=== PATIENT | female | born 1975 | race Caucasian/White ===

== ENCOUNTER 2018-09-12 13:10 | Inpatient (IN) | payer MEDICAID ==
[~2018-09-12] VITALS: Ht 165.1 cm; Wt 89.0 kg
--- NOTE | 2018-09-12 13:43 | HP ---
Date/Time of Note Date/Time of Note DATE: 09/12/18 TIME: 13:39 OB - History Hx of Present Chief Complaint: uncontrolled GDM Estimated Due Date: Sep 05, 2018 : 5 Para: 2 Spontaneous : 0 Therapeutic : 2 Care: Good Care Ultrasounds: Normal mid trimester US Obstetrical Complications: Gestational Diabetes Medical Complications: None Past Family/Social History * Past Medical, Surgical, Family and Obstetric Histories reviewed from chart. GBS Status: Negative OB Admission Exam Physical Exam HEENT: WNL Heart: Rhythm Normal Lungs: Clear, Equal Abdomen: WNL Extremities: Normal Reflexes: Normal Heart Rate: 120's Accelerations: Accelerations Present Decelerations: No Decelerations Varibility: Moderate OB Assessment/Plan Reason for admission: other Other Assessment: uncontrolled GDM Plan: Other Other plan: Admit Perinatology consult Diabetic teaching Monitor blood glucose SHERLEY CHAMBERS MD Sep 12, 2018 13:43
[2018-09-12 13:59] VITALS: Ht 165.1 cm; Wt 89.0 kg
[2018-09-12 14:01] VITALS: BP 120/76; PULSE 83; RESP 20
[2018-09-12] MEDS ORDERED: PREN-6 PO (14:03)
[2018-09-12] MEDS ORDERED: FOLI-49 PO (14:21)
[2018-09-12] MEDS ORDERED: FER325 PO (14:22)
[2018-09-12] MEDS ORDERED: GLUCOSE GEL 15 GRAM TUBE PO PRN ×2 (14:30)
[2018-09-12] MEDS ORDERED: GLUCOSE GEL 15 GRAM TUBE BUCCAL PRN (14:30)
[2018-09-12] MEDS ORDERED: ACETAMINOPHEN 325 MG TAB PO PRN (14:30)
[2018-09-12] MEDS ORDERED: DEXTROSE 50% 50 ML SYRINGE IV PRN ×2 (14:30)
[2018-09-12] MEDS ORDERED: GLUCAGON 1 MG INJ IM PRN (14:30)
[2018-09-12] MEDS: ACCU-CHEK XX SCH (20:05)
[2018-09-12] MEDS ORDERED: ACCU-CHEK XX SCH (20:05)
[2018-09-13] MEDS ORDERED: PRENATAL VITAMIN PO SCH (09:00)
[2018-09-13] MEDS ORDERED: FERROUS SULFATE (EC) 325 MG TAB PO SCH (09:00)
[2018-09-13] MEDS: PRENATAL VITAMIN PO SCH (09:40)
[2018-09-13] MEDS: FERROUS SULFATE (EC) 325 MG TAB PO SCH (09:40)
[2018-09-13] MEDS: DOCUSATE SODIUM 100 MG CAP PO SCH (09:40)
[2018-09-13] MEDS: ACCU-CHEK XX SCH ×3 (10:05→20:05)
--- NOTE | 2018-09-13 17:16 | QN ---
Documentation Comment No complaint Afebrile VSS Strip Reactive Await Perinatology consult SHERLEY CHAMBERS MD Sep 13, 2018 17:16
[2018-09-13] MEDS: metFORMIN 500 MG TAB PO SCH (20:47)
[2018-09-14] MEDS: DOCUSATE SODIUM 100 MG CAP PO SCH (08:30)
[2018-09-14] MEDS: PRENATAL VITAMIN PO SCH (08:30)
[2018-09-14] MEDS: FERROUS SULFATE (EC) 325 MG TAB PO SCH (08:30)
[2018-09-14] MEDS: metFORMIN 500 MG TAB PO SCH ×2 (08:30→20:38)
[2018-09-14] MEDS: ACCU-CHEK XX SCH ×3 (10:54→20:10)
--- NOTE | 2018-09-14 16:50 | QN ---
Documentation Comment No complaint Afebrile VSS Strip Reactive Blood glucose elevated Patient is started on Metformin by Perinatology. Continue care per Perinatology. SHERLEY CHAMBERS MD Sep 14, 2018 16:50
[2018-09-15] MEDS: metFORMIN 500 MG TAB PO SCH (08:15)
[2018-09-15] MEDS: PRENATAL VITAMIN PO SCH (08:15)
[2018-09-15] MEDS: DOCUSATE SODIUM 100 MG CAP PO SCH (08:15)
[2018-09-15] MEDS: FERROUS SULFATE (EC) 325 MG TAB PO SCH (08:15)
[2018-09-15] MEDS: ACCU-CHEK XX SCH ×2 (10:47→14:39)
--- NOTE | 2018-09-18 03:49 | PN ---
DATE: 09/15/2018 The patient was admitted over the weekend for diabetic control because she was noncompliant. 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 She was contacted and was placed on metformin with breakfast and bedtime. Currently , blood glucoses are under good control, so my recommendation is for the patient to be discharged wit h a followup with perinatology within 1 or 2 weeks. Dictated By: HOMERO ROSENBERG/MARIMAR Conf#: [id number] DID#: [id number]
== END 2018-09-15 18:55 | disposition home or self-care (01) | DRG 833 ==
LOC: PP1 13:10
PROVIDERS: ADMIT Obstetrics & Gynecology; ATTEND Obstetrics & Gynecology
DX: O24.419 Gestational diabetes mellitus in pregnancy, unspecified control (principal); O09.523 Supervision of elderly multigravida, third trimester; Z3A.36 36 weeks gestation of pregnancy; Z91.11 Patient's noncompliance with dietary regimen
CPT/HCPCS: 76818; 80053; 81003; 82962; 83036; 85025; 87086

== ENCOUNTER 2018-09-27 19:36 | Inpatient (IN) | payer MEDICAID ==
[~2018-09-27] VITALS: Ht 162.6 cm; Wt 82.7 kg
[~2018-09-27 19:36] MED LIST: FER325 PO; FOLI-49 PO; PREN-6 PO
[2018-09-27 19:45] VITALS: BP 138/88; PULSE 117; RESP 19
[2018-09-27] MEDS ORDERED: CITRACAL PO (19:56)
[2018-09-27] MEDS ORDERED: METF-849 PO (19:56)
[2018-09-27 20:02] VITALS: Ht 162.6 cm; Wt 82.7 kg
[2018-09-27] MEDS: LACTATED RINGER'S 1,000 ML IV SCH ×2 (20:17→21:31)
[2018-09-27] MEDS ORDERED: CARBOPROST 250 MCG INJ IM PRN (20:30)
[2018-09-27] MEDS ORDERED: MINERAL OIL LIGHT 10 ML VIAL TOP ONE (20:30)
[2018-09-27] MEDS ORDERED: OXYTOCIN 30 UNITS/LR 500 ML IV PRN ×2 (20:30→21:00)
[2018-09-27] MEDS ORDERED: LIDOCAINE 1% (MPF) 30 ML INJ INJ PRN (20:30)
[2018-09-27] MEDS ORDERED: OXYCODONE/ASPIRIN (4.88/325) TAB PO PRN (20:30)
[2018-09-27] MEDS ORDERED: IBUPROFEN 600 MG TAB PO PRN (20:30)
[2018-09-27] MEDS ORDERED: OXYTOCIN 30 UNITS/LR 500 ML IV SCH ×2 (20:30)
[2018-09-27] MEDS ORDERED: BUTORPHANOL 2 MG INJ IV PRN (20:30)
[2018-09-27] MEDS ORDERED: METHYLERGONOVINE 0.2 MG INJ IM PRN (20:30)
[2018-09-27] MEDS ORDERED: MISOPROSTOL 200 MCG TAB PR PRN (20:30)
[2018-09-27] MEDS ORDERED: metFORMIN 500 MG TAB PO ONE (21:00)
--- NOTE | 2018-09-27 21:04 | PREAC ---
Date/Time of Note Date/Time of Note DATE: 09/27/18 TIME: 21:03 Anesthesia Eval and Record Evaluation Time Pre-Procedure Interview DATE: 09/27/18 TIME: 21:03 Age 43 Sex female NPO: 8 hrs Preoperative diagnosis iup at 38 weeks Planned procedure labor epidural Past Medical History Past Medical History: Includes GI: Obesity Surgery & Anesthesia Issues No known issue Meds Anticoagulation: No Beta Frantz within 24 hr: No Reason Beta Frantz not given: Pt. not on B-Frantz Reported Medications Calcium Citrate* (Citracal*) 950 Mg Tab, 950 MG PO DAILY, TAB 09/27/18 Metformin* (Glucophage*) 500 Mg Tab, 500 MG PO WITH BREAKFAST DINNE, #30 TAB 09/27/18 Ferrous Sulfate* (Ferrous Sulfate*) 325 Mg Tabec, 325 MG PO DAILY, TAB 09/12/18 Folic Acid* (Folic Acid*) 1 Mg Tablet, 1 MG PO DAILY, TAB 09/12/18 Vits #93-Iron Fum-FA ( Formula) 1 Each Tablet, 1 TAB PO DAILY, TAB 09/12/18 Current Medications Lactated Ringer's 1,000 ml @ 125 mls/hr Q8H IV Last administered on 09/27/18at 20:17; Admin Dose 125 MLS/HR; Start 09/27/18 at 20:03 Butorphanol Tartrate (Stadol) 2 mg Q2H PRN IV .PAIN Last administered on 09/27/18at 20:32; Admin Dose 2 MG; Start 09/27/18 at 20:30 Lidocaine (Xylocaine 1% (Mpf)) 30 ml ONCE PRN INJ .EPISIOTOMY; Start 09/27/18 at 20:30 Oxytocin/Lactated Ringer's 500 ml @ 500 mls/hr ONCE POST IV ; Start 09/27/18 at 20:30 Oxytocin/Lactated Ringer's 500 ml @ 125 mls/hr POST IV ; Start 09/27/18 at 20:30 Ibuprofen (Motrin) 600 mg ONCE PRN PO .PAIN 1-5; Start 09/27/18 at 20:30 Oxycodone/Aspirin (Percodan) 2 tab ONCE PRN PO .PAIN 6-10; Start 09/27/18 at 20:30 Oxytocin/Lactated Ringer's 500 ml @ 0 mls/hr ONCE PRN IV .VAGINAL BLEEDING; Start 09/27/18 at 20:30 Methylergonovine Maleate (Methergine) 0.2 mg ONCE PRN IM .VAGINAL BLEEDING; Start 09/27/18 at 20:30 Carboprost Tromethamine (Hemabate) 250 mcg ONCE PRN IM .VAGINAL BLEEDING; Start 09/27/18 at 20:30 Misoprostol (Cytotec) 1,000 mcg ONCE PRN IL .VAGINAL BLEEDING; Start 09/27/18 at 20:30 Oxytocin/Lactated Ringer's 500 ml @ 0 mls/hr FOR AUGMENTATION PRN IV LABOR AUGMENTATION; Start 09/27/18 at 21:00 Meds reviewed: Yes Allergies Coded Allergies: No Known Allergies (Verified Allergy, Unknown, 09/27/18) Allergies Reviewed: Yes Labs/Studies Labs Reviewed: Reviewed by anesthesiologist Result Diagram: 09/27/182014 Laboratory Tests 09/27/18 20:15 test: Positive Pre-procedure Exam Last vitals Vital Signs Date Temp Pulse Resp B/P (MAP) Pulse Ox O2 O2 Flow FiO2 Time Delivery Rate 09/27/18 97.7 117 19 138/88 Room Air 19:45 (105) Airway: Adequate mouth opening, Adequate thyromental dist Mallampati: Mallampati I Teeth: Normal Lung: Normal Heart: Normal ASA Physical Status ASA physical status: 2 Emergency: None Planned Anesthetic Neuraxial: Epidural Planned Pain Management Parenteral pain med Pre-operative Attestations Prior to commencing anesthesia and surgery, the patient was re-evaluated, there was verification of: *The patient's identity *The results of appropriate recent lab work and preoperative vital signs *The above evaluation not changing prior to induction *Anesthetic plan, risk benefits, alternative and complications discussed with patient/family; questions answered; patient/family understands, accepts and wishes to proceed. KAREN LOREDO Sep 27, 2018 21:04
[2018-09-27] MEDS ORDERED: FENTAnyl 2MCG/ML-ROPIV 0.2% 100 ML ONE (21:06)
[2018-09-27] MEDS ORDERED: NALOXONE (0.4 MG/ML) INJ IV PRN (21:30)
[2018-09-27] MEDS ORDERED: ONDANSETRON 4 MG INJ IV PRN (21:30)
[2018-09-27] MEDS ORDERED: FENTAnyl 2MCG/ML-ROPIV 0.2% 100 ML BAG EPI SCH (21:30)
[2018-09-27] MEDS ORDERED: DIPHENHYDRAMINE 50 MG INJ IV PRN (21:30)
--- NOTE | 2018-09-27 21:47 | TRIAGE ---
OB Triage Datetime Report Generated by CPN: 09/27/2018 21:46 Datetime: 09/27/2018 20:35 Vaginal Exam Dilatation (cms): 3.0 Effacement (%): 80 Station: -2 Exam By: Tommy COATES Vaginal Bleeding: Normal Show Cervix, Consistency: Soft Cervix, Position: Midposition Presentation 'A': Cephalic Datetime: 09/27/2018 20:34 Monitor Mode: External Monitor Mode: External US Datetime: 09/27/2018 20:32 Pain Assessment Pain Scale: 10 Pain Presence: Intermittent Pain Type: Contraction Pain Location: Abdomen; Back Pain Relief Measures: Pain Medication Given; Comfort Measures Datetime: 09/27/2018 20:17 Comments: mONITOR OFF, PT TRANSFERRED TO [facility] VIA GURNEY ACCOMPANIED BY 2RN'S _ FAMILY Datetime: 09/27/2018 20:16 Labor Evaluation Frequency: 1-3 Monitor Mode: External Duration (sec)2399: 50-70 Quality: Moderate Resting Tone [place]: Relaxed Heart Rate FHR Baseline Rate: 140 Monitor Mode: External US Variability: Moderate 6-25 bpm Accelerations: 15X15 Decelerations: None Category: Category I Pain Assessment Pain Scale: 7 Pain Presence: Intermittent Pain Type: Contraction; Pressure Pain Location: Abdomen; Back Pain Relief Measures: Comfort Measures Datetime: 09/27/2018 20:10 Assessment Type: Admission Assessment Vaginal Bleeding: Normal Show Maternal Assessment Level of Consciousness: Fully Conscious DTR's/Clonus: DTRs 2+; No Clonus Headache: Denies Blurred Vision: No Respiratory Effort: Unlabored; Regular Rhythm; Equal Expansion Breath Sounds, Left: Clear and Equal Breath Sounds, Right: Clear and Equal Nausea/Vomiting: Denies RUQ Epigastric Pain: Denies Lower Extremities Edema: None Degree: None Upper Extremities Edema: None Degree: None Facial Edema: None Fall Risk Assessment History of Falling: (0) No Secondary Diagnosis: (0) No Ambulatory Aid: (0) Bedrest/Nurse Assist IV Therapy: (0) No Gait: (0) Normal/Bedrest/Immobile Mental Status: (0) Oriented to Own Ability Fall Score: 0 Fall Risk Score Definition: No Risk: No action required Datetime: 09/27/2018 20:09 Time of Arrival: 09/27/2018 20:00 EGA: 38.5 Arrived By: Wheelchair Arrived From: Other Hospital Datetime: 09/27/2018 19:58 Vaginal Exam Dilatation (cms): 3.0 Effacement (%): 70 Station: -2 Exam By: MICHELET CASTELLANO Membrane Status: Ruptured Membranes Rupture Method: Spontaneous Amniotic Fluid Color: Clear Amniotic Fluid Amount: Large Amniotic Fluid Odor: None Vaginal Bleeding: Normal Show Nitrazine: Positive Cervix, Consistency: Soft Cervix, Position: Midposition Presentation 'A': Cephalic Datetime: 09/27/2018 19:56 Pain Assessment Pain Scale: 7 Pain Presence: Intermittent Pain Type: Contraction Pain Location: Abdomen Pain Relief Measures: Comfort Measures Datetime: 09/27/2018 19:50 Time of Arrival: 09/27/2018 19:29 EGA: 38.5 Arrived By: Ambulatory Arrived From: Home Chief Complaint: SROM AROUND 1900 WITH BLOODY SHOW AND WITH UC'S Movement: Present Contractions: Regular Time Contractions Began: 09/27/2018 19:00 Rupture of Membranes: Ruptured Vaginal Bleeding: Normal Show Vaginal Discharge: Present Recent Sexual Intercouse: Denies Abdominal Trauma: Not Applicable Patient Complaints: Contractions; Other Time Provider Notified: 09/27/2018 20:02 Provider Notified: REICHE Initial Plan: EFM, VS, SVE Datetime: 09/27/2018 19:45 Stage of : OB Triage Assessment Type: Triage Maternal Assessment Level of Consciousness: Fully Conscious DTR's/Clonus: DTRs 2+; No Clonus Headache: Denies Blurred Vision: No Respiratory Effort: Unlabored; Regular Rhythm; Equal Expansion Breath Sounds, Left: Clear and Equal Breath Sounds, Right: Clear and Equal Nausea/Vomiting: Denies RUQ Epigastric Pain: Denies Lower Extremities Edema: None Degree: None Upper Extremities Edema: None Degree: None Facial Edema: None Temperature Route: Oral Fall Risk Assessment History of Falling: (0) No Secondary Diagnosis: (0) No Ambulatory Aid: (0) Bedrest/Nurse Assist IV Therapy: (0) No Gait: (0) Normal/Bedrest/Immobile Mental Status: (0) Oriented to Own Ability Fall Score: 0 Fall Risk Score Definition: No Risk: No action required Pain Assessment Pain Scale: 2 Pain Presence: Intermittent Pain Type: Contraction Pain Location: Abdomen Pain Relief Measures: Comfort Measures Datetime: 09/27/2018 19:44 Monitor Mode: External Monitor Mode: External US Comments: MONITORS APPLIED, FHT AUDIBLE AT 135BPM Datetime: 09/27/2018 19:38 Stage of : OB Triage Comments: MONITOR ON, PT IN LR4 Datetime: 09/15/2018 18:17 Stage of : Antepartum Maternal Assessment Level of Consciousness: Fully Conscious Headache: Denies Blurred Vision: No Respiratory Effort: Unlabored Nausea/Vomiting: Denies RUQ Epigastric Pain: Denies Pain Presence: None/Denies Datetime: 09/15/2018 18:02 Stage of : Antepartum Maternal Assessment Level of Consciousness: Fully Conscious Headache: Denies Nausea/Vomiting: Denies Pain Presence: None/Denies Datetime: 09/15/2018 17:38 Stage of : Antepartum Maternal Assessment Level of Consciousness: Fully Conscious Headache: Denies Nausea/Vomiting: Denies Pain Presence: None/Denies Datetime: 09/15/2018 16:04 Stage of : Antepartum Maternal Assessment Level of Consciousness: Fully Conscious Headache: Denies Nausea/Vomiting: Denies Pain Presence: None/Denies Datetime: 09/15/2018 15:45 Stage of : Antepartum Maternal Assessment Level of Consciousness: Fully Conscious Headache: Denies Nausea/Vomiting: Denies RUQ Epigastric Pain: Denies Resting Tone [place]: Relaxed Comments: pt. acknowledges movements Pain Assessment Pain Scale: 0 Pain Presence: None/Denies Vaginal Bleeding: None Datetime: 09/15/2018 15:13 Stage of : Antepartum Maternal Assessment Level of Consciousness: Fully Conscious Headache: Denies Nausea/Vomiting: Denies Pain Presence: None/Denies Datetime: 09/15/2018 14:45 Maternal Assessment Level of Consciousness: Fully Conscious Headache: Denies Blurred Vision: No Respiratory Effort: Unlabored Nausea/Vomiting: Denies RUQ Epigastric Pain: Denies Bedside Blood Glucose: 96 Pain Presence: None/Denies Datetime: 09/15/2018 13:14 Stage of : Antepartum Maternal Assessment Level of Consciousness: Fully Conscious Headache: Denies Blurred Vision: No Respiratory Effort: Unlabored Nausea/Vomiting: Denies Pain Presence: None/Denies Datetime: 09/15/2018 13:12 Stage of : Antepartum Maternal Assessment Level of Consciousness: Fully Conscious Headache: Denies Nausea/Vomiting: Denies RUQ Epigastric Pain: Denies Resting Tone [place]: Relaxed Pain Presence: None/Denies Datetime: 09/15/2018 11:26 Maternal Assessment Level of Consciousness: Fully Conscious Headache: Denies Blurred Vision: No Respiratory Effort: Unlabored Nausea/Vomiting: Denies RUQ Epigastric Pain: Denies Datetime: 09/15/2018 10:45 Labor Evaluation Frequency: 0 Monitor Mode: External Resting Tone [place]: Relaxed Heart Rate FHR Baseline Rate: 135 Monitor Mode: External US Variability: Moderate 6-25 bpm Accelerations: 15X15 Decelerations: None Datetime: 09/15/2018 10:28 Maternal Assessment Level of Consciousness: Fully Conscious Headache: Denies Blurred Vision: No Respiratory Effort: Unlabored Nausea/Vomiting: Denies RUQ Epigastric Pain: Denies Bedside Blood Glucose: 113 Monitor Mode: External Resting Tone [place]: Relaxed Pain Presence: None/Denies Datetime: 09/15/2018 09:30 Stage of : Antepartum Maternal Assessment Level of Consciousness: Fully Conscious Headache: Denies Nausea/Vomiting: Denies RUQ Epigastric Pain: Denies Resting Tone [place]: Relaxed Pain Assessment Pain Scale: 0 Pain Presence: None/Denies Vaginal Bleeding: None Datetime: 09/15/2018 08:30 Stage of : Antepartum Maternal Assessment Level of Consciousness: Fully Conscious Headache: Denies Breath Sounds, Left: Clear and Equal Breath Sounds, Right: Clear and Equal Nausea/Vomiting: Denies RUQ Epigastric Pain: Denies Resting Tone [place]: Relaxed Pain Assessment Pain Scale: 0 Pain Presence: None/Denies Vaginal Bleeding: None Datetime: 09/15/2018 07:24 Stage of : Antepartum Maternal Assessment Level of Consciousness: Fully Conscious Headache: Denies Blurred Vision: No Respiratory Effort: Unlabored Breath Sounds, Left: Clear and Equal Breath Sounds, Right: Clear and Equal Nausea/Vomiting: Denies RUQ Epigastric Pain: Denies Temperature Route: Oral Bedside Blood Glucose: 97 Resting Tone [place]: Relaxed Contraction Comments: pt. denies any uc's or cramping Comments: pt. acknowledges movements ega 37.0 orders for nst q shift. pt. rting after breakfa st at this time Pain Assessment Pain Scale: 0 Pain Presence: None/Denies Membrane Status: Intact Vaginal Bleeding: None Datetime: 09/15/2018 07:23 Stage of : Antepartum Datetime: 09/15/2018 06:15 Stage of : Antepartum Datetime: 09/15/2018 05:24 Stage of : Antepartum Temperature Route: Oral Contraction Comments: PT DENIES CRAMPING. Comments: PT STATES + FM Pain Presence: None/Denies Pain Type: N/A Membrane Status: Intact Vaginal Bleeding: None Datetime: 09/15/2018 03:10 Stage of : Antepartum Pain Presence: None/Denies Pain Type: N/A Pain Assessment Comments: PT SLEEPING WITH EVEN UNLABORED BREATHING Datetime: 09/15/2018 01:30 Stage of : Antepartum Pain Presence: None/Denies Pain Type: N/A Pain Assessment Comments: PT SLEEPING WITH EVEN UNLABORED BREATHING. Datetime: 09/14/2018 23:53 Stage of : Antepartum Temperature Route: Oral Contraction Comments: PT DENIES CRAMPING Comments: PT STATES + FM Datetime: 09/14/2018 21:59 Stage of : Antepartum Labor Evaluation Frequency: NONE Monitor Mode: External Resting Tone [place]: Relaxed Contraction Comments: TOCO REMOVED. NST COMPLETED. Heart Rate FHR Baseline Rate: 130 Monitor Mode: External US Variability: Moderate 6-25 bpm Accelerations: 15X15 Decelerations: None Category: Category I Comments: U/S REMOVED. NST COMPLETED. Pain Presence: None/Denies Pain Type: N/A Datetime: 09/14/2018 21:17 Labor Evaluation Frequency: NONE Monitor Mode: External Resting Tone [place]: Relaxed Heart Rate FHR Baseline Rate: 140 Monitor Mode: External US Variability: Moderate 6-25 bpm Accelerations: 15X15 Decelerations: None Category: Category I Pain Presence: None/Denies Pain Type: N/A Datetime: 09/14/2018 20:38 Stage of : Antepartum Datetime: 09/14/2018 20:13 Stage of : OB Triage Assessment Type: Ongoing Assessment Maternal Assessment Level of Consciousness: Fully Conscious DTR's/Clonus: DTRs 2+; No Clonus Headache: Denies Blurred Vision: No Respiratory Effort: Unlabored; Regular Rhythm; Equal Expansion Breath Sounds, Left: Clear and Equal Breath Sounds, Right: Clear and Equal Nausea/Vomiting: Denies RUQ Epigastric Pain: Denies Lower Extremities Edema: None Degree: None Upper Extremities Edema: None Degree: None Facial Edema: None Temperature Route: Oral Fall Risk Assessment History of Falling: (0) No Secondary Diagnosis: (0) No Ambulatory Aid: (0) Bedrest/Nurse Assist IV Therapy: (0) No Gait: (0) Normal/Bedrest/Immobile Mental Status: (0) Oriented to Own Ability Fall Score: 0 Fall Risk Score Definition: No Risk: No action required Monitor Mode: External Contraction Comments: PT DENIES CRAMPING Monitor Mode: External US Comments: APPLIED FOR NST Pain Presence: None/Denies Pain Type: N/A Membrane Status: Intact Vaginal Bleeding: None Datetime: 09/14/2018 20:10 Stage of : Antepartum Bedside Blood Glucose: 108 Datetime: 09/14/2018 17:55 Stage of : Antepartum Datetime: 09/14/2018 16:12 Stage of : Antepartum Temperature Route: Oral Datetime: 09/14/2018 15:20 Stage of : Antepartum Datetime: 09/14/2018 15:12 Stage of : Antepartum Datetime: 09/14/2018 15:10 Stage of : Antepartum Datetime: 09/14/2018 14:40 Bedside Blood Glucose: 100 (Annotations: 2 post prandial lunch) Datetime: 09/14/2018 12:28 Stage of : Antepartum Temperature Route: Oral Pain Assessment Pain Scale: 0 Pain Presence: None/Denies Pain Type: N/A Datetime: 09/14/2018 10:59 Stage of : Antepartum Bedside Blood Glucose: 94 Pain Assessment Pain Scale: 0 Pain Presence: None/Denies Pain Type: N/A Datetime: 09/14/2018 10:54 Stage of : Antepartum Bedside Blood Glucose: 93 (Annotations: 2 hour post breaskfast.) Datetime: 09/14/2018 07:59 Stage of : Antepartum Labor Evaluation Frequency: X3 Monitor Mode: External Duration (sec)2399: 50 Quality: Mild Pattern: Normal: <= 5 Contractions in 10 Minutes Resting Tone [place]: Relaxed Heart Rate FHR Baseline Rate: 145 Monitor Mode: External US FHR Baseline Changes: No Baseline Change Variability: Moderate 6-25 bpm Accelerations: 15X15 Decelerations: None Comments: NST completed Pain Assessment Pain Scale: 0 Pain Presence: None/Denies Pain Type: N/A Datetime: 09/14/2018 07:52 Stage of : OB Triage Bedside Blood Glucose: 98 (Annotations: FBS) Datetime: 09/14/2018 07:27 Monitor Mode: External Monitor Mode: External US Comments: NST started Datetime: 09/14/2018 07:22 Stage of : Antepartum Assessment Type: Ongoing Assessment Maternal Assessment Level of Consciousness: Fully Conscious DTR's/Clonus: DTRs 2+; No Clonus Headache: Denies Blurred Vision: No Respiratory Effort: Unlabored; Regular Rhythm; Equal Expansion Breath Sounds, Left: Clear and Equal Breath Sounds, Right: Clear and Equal Nausea/Vomiting: Denies RUQ Epigastric Pain: Denies Lower Extremities Edema: None Degree: None Upper Extremities Edema: None Degree: None Facial Edema: None Temperature Route: Oral Fall Risk Assessment History of Falling: (0) No Secondary Diagnosis: (0) No Ambulatory Aid: (0) Bedrest/Nurse Assist IV Therapy: (0) No Gait: (0) Normal/Bedrest/Immobile Mental Status: (0) Oriented to Own Ability Fall Score: 0 Fall Risk Score Definition: No Risk: No action required Pain Assessment Pain Scale: 0 Pain Presence: None/Denies Pain Type: N/A Datetime: 09/14/2018 07:20 Stage of : Antepartum Datetime: 09/14/2018 05:23 Stage of : Antepartum Temperature Route: Oral Pain Assessment Pain Scale: 0 Pain Presence: None/Denies Pain Goal: 0 Datetime: 09/13/2018 21:00 Pain Assessment Pain Scale: 0 Pain Presence: None/Denies Pain Type: N/A Pain Goal: 0 Datetime: 09/13/2018 20:25 Comments: EFM off. NST complete. Datetime: 09/13/2018 20:00 Labor Evaluation Frequency: x1 Monitor Mode: External Duration (sec)2399: 50 Quality: Mild Resting Tone [place]: Relaxed Contraction Comments: pt without complaint of ucc pain. Heart Rate FHR Baseline Rate: 140 Monitor Mode: External US FHR Baseline Changes: No Baseline Change Variability: Moderate 6-25 bpm Accelerations: 15X15 Decelerations: None Category: Category I Comments: +FM. NST reactive and reassuring. Datetime: 09/13/2018 19:28 Assessment Type: Ongoing Assessment Maternal Assessment Level of Consciousness: Fully Conscious DTR's/Clonus: DTRs 2+; No Clonus Headache: Denies Blurred Vision: No Respiratory Effort: Unlabored; Regular Rhythm; Equal Expansion Breath Sounds, Left: Clear and Equal Breath Sounds, Right: Clear and Equal Nausea/Vomiting: Denies RUQ Epigastric Pain: Denies Lower Extremities Edema: None Degree: None Upper Extremities Edema: None Degree: None Facial Edema: None Fall Risk Assessment History of Falling: (0) No Secondary Diagnosis: (0) No Ambulatory Aid: (0) Bedrest/Nurse Assist IV Therapy: (0) No Gait: (0) Normal/Bedrest/Immobile Mental Status: (0) Oriented to Own Ability Fall Score: 0 Fall Risk Score Definition: No Risk: No action required Datetime: 09/13/2018 19:26 Stage of : Antepartum Temperature Route: Oral Pain Assessment Pain Scale: 0 Pain Presence: None/Denies Pain Goal: 0 Datetime: 09/13/2018 13:24 Stage of : Antepartum Datetime: 09/13/2018 13:23 Assessment Type: Ongoing Assessment Maternal Assessment Level of Consciousness: Fully Conscious DTR's/Clonus: DTRs 2+; No Clonus Headache: Denies Blurred Vision: No Respiratory Effort: Unlabored; Regular Rhythm; Equal Expansion Breath Sounds, Left: Clear and Equal Breath Sounds, Right: Clear and Equal Nausea/Vomiting: Denies RUQ Epigastric Pain: Denies Lower Extremities Edema: None Degree: None Upper Extremities Edema: None Degree: None Facial Edema: None Fall Risk Assessment History of Falling: (0) No Secondary Diagnosis: (0) No Ambulatory Aid: (0) Bedrest/Nurse Assist IV Therapy: (0) No Gait: (0) Normal/Bedrest/Immobile Mental Status: (0) Oriented to Own Ability Fall Score: 0 Fall Risk Score Definition: No Risk: No action required Datetime: 09/13/2018 13:17 Stage of : Antepartum Datetime: 09/13/2018 10:05 Labor Evaluation Frequency: x3 Monitor Mode: External Duration (sec)2399: 50-80 Quality: Mild Pattern: Normal: <= 5 Contractions in 10 Minutes Resting Tone [place]: Relaxed Contraction Comments: denies feeling Heart Rate FHR Baseline Rate: 135 Monitor Mode: External US Variability: Moderate 6-25 bpm Accelerations: 15X15 Decelerations: None Category: Category I Datetime: 09/13/2018 09:42 Comments: nst started Datetime: 09/13/2018 08:03 Assessment Type: Ongoing Assessment Maternal Assessment Level of Consciousness: Fully Conscious DTR's/Clonus: DTRs 2+; No Clonus Headache: Denies Blurred Vision: No Respiratory Effort: Unlabored; Regular Rhythm; Equal Expansion Breath Sounds, Left: Clear and Equal Breath Sounds, Right: Clear and Equal Nausea/Vomiting: Denies RUQ Epigastric Pain: Denies Lower Extremities Edema: None Degree: None Upper Extremities Edema: None Degree: None Facial Edema: None Bedside Blood Glucose: 100 Fall Risk Assessment History of Falling: (0) No Secondary Diagnosis: (0) No Ambulatory Aid: (0) Bedrest/Nurse Assist IV Therapy: (0) No Gait: (0) Normal/Bedrest/Immobile Mental Status: (0) Oriented to Own Ability Fall Score: 0 Fall Risk Score Definition: No Risk: No action required Contraction Comments: DENIES Comments: STATES POSITIVE FM Pain Assessment Pain Scale: 0 Pain Presence: None/Denies Pain Type: N/A Datetime: 09/13/2018 06:10 Stage of : Antepartum Temperature Route: Oral Contraction Comments: ABDOMEN SOFT UPON PALPATION. PT DENIES FEELING UC'S OR CRAMPING Comments: PT REPORTED MOVEMENT. Pain Assessment Pain Scale: 0 Pain Presence: None/Denies Pain Type: N/A Datetime: 09/13/2018 02:30 Stage of : Antepartum Contraction Comments: PT DENIES FEELING UC'S OR CRAMPING Comments: PT REPORTED INCREASED MOVEMENT Pain Assessment Pain Scale: 0 Pain Presence: None/Denies Pain Type: N/A Datetime: 09/12/2018 23:00 Comments: MONITORS OFF Datetime: 09/12/2018 22:59 Stage of : Antepartum Labor Evaluation Frequency: X3 Monitor Mode: External Duration (sec)2399: 40-60 Quality: Mild Pattern: Normal: <= 5 Contractions in 10 Minutes Resting Tone [place]: Relaxed Contraction Comments: PT DENIES FEELING UC'S OR CRAMPING Heart Rate FHR Baseline Rate: 135 Monitor Mode: External US Variability: Moderate 6-25 bpm Accelerations: 15X15 Decelerations: None Category: Category I Datetime: 09/12/2018 22:30 Stage of : Antepartum Labor Evaluation Frequency: 3-6 Monitor Mode: External Duration (sec)2399: 50-70 Quality: Mild Pattern: Normal: <= 5 Contractions in 10 Minutes Resting Tone [place]: Relaxed Contraction Comments: PT DENIES FEELING UC'S OR CRAMPING Heart Rate FHR Baseline Rate: 135 Monitor Mode: External US Variability: Moderate 6-25 bpm Accelerations: 15X15 Decelerations: None Category: Category I Datetime: 09/12/2018 22:00 Stage of : Antepartum Labor Evaluation Frequency: 3-5 Monitor Mode: External Duration (sec)2399: 40-60 Quality: Mild Pattern: Normal: <= 5 Contractions in 10 Minutes Resting Tone [place]: Relaxed Contraction Comments: PT DENIES FEELING UC'S OR CRAMPING Heart Rate FHR Baseline Rate: 135 Monitor Mode: External US Variability: Moderate 6-25 bpm Accelerations: 15X15 Decelerations: None Category: Category I Datetime: 09/12/2018 21:31 Monitor Mode: Palpation Monitor Mode: External US Datetime: 09/12/2018 21:30 Stage of : Antepartum Labor Evaluation Frequency: 2-3 Monitor Mode: External Duration (sec)2399: 60-90 Quality: Mild Pattern: Normal: <= 5 Contractions in 10 Minutes Resting Tone [place]: Relaxed Contraction Comments: PT DENIES FEELING UC'S OR CRAMPING Heart Rate FHR Baseline Rate: 135 Monitor Mode: External US Variability: Moderate 6-25 bpm Accelerations: 15X15 Decelerations: None Category: Category I Datetime: 09/12/2018 20:59 Monitor Mode: External Monitor Mode: External US Comments: QSHIFT NST STARTED Datetime: 09/12/2018 19:40 Stage of : Antepartum Assessment Type: Ongoing Assessment Maternal Assessment Level of Consciousness: Fully Conscious DTR's/Clonus: DTRs 2+; No Clonus Headache: Denies Blurred Vision: No Respiratory Effort: Unlabored; Regular Rhythm; Equal Expansion Breath Sounds, Left: Clear and Equal Breath Sounds, Right: Clear and Equal Nausea/Vomiting: Denies RUQ Epigastric Pain: Denies Lower Extremities Edema: None Degree: None Upper Extremities Edema: None Degree: None Facial Edema: None Temperature Route: Oral Fall Risk Assessment History of Falling: (0) No Secondary Diagnosis: (0) No Ambulatory Aid: (0) Bedrest/Nurse Assist IV Therapy: (0) No Gait: (0) Normal/Bedrest/Immobile Mental Status: (0) Oriented to Own Ability Fall Score: 0 Fall Risk Score Definition: No Risk: No action required Pain Assessment Pain Scale: 0 Pain Presence: None/Denies Pain Type: N/A Datetime: 09/12/2018 14:41 Assessment Type: Admission Assessment Vaginal Bleeding: None Maternal Assessment Level of Consciousness: Fully Conscious DTR's/Clonus: DTRs 2+; No Clonus Headache: Denies Blurred Vision: No Respiratory Effort: Unlabored; Regular Rhythm; Equal Expansion Breath Sounds, Left: Clear and Equal Breath Sounds, Right: Clear and Equal Nausea/Vomiting: Denies RUQ Epigastric Pain: Denies Facial Edema: None Fall Risk Assessment History of Falling: (0) No Secondary Diagnosis: (0) No Ambulatory Aid: (0) Bedrest/Nurse Assist IV Therapy: (0) No Gait: (0) Normal/Bedrest/Immobile Mental Status: (0) Oriented to Own Ability Fall Score: 0 Fall Risk Score Definition: No Risk: No action required Datetime: 09/12/2018 14:40 Time of Arrival: 09/12/2018 14:40 EGA: 36.4 Arrived By: Ambulatory Arrived From: Dr. Office Datetime: 09/12/2018 14:24 Bedside Blood Glucose: 89 Datetime: 09/12/2018 14:16 Labor Evaluation Frequency: 0 Monitor Mode: External Resting Tone [place]: Relaxed Heart Rate FHR Baseline Rate: 130 Monitor Mode: External US FHR Baseline Changes: No Baseline Change Variability: Moderate 6-25 bpm Accelerations: 15X15 Decelerations: None Category: Category I
--- NOTE | 2018-09-28 02:46 | PAC ---
Date/Time of Note Date/Time of Note DATE: 09/28/18 TIME: 02:46 Post-Anesthesia Notes Post-Anesthesia Note Last documented vital signs Vital Signs Date Temp Pulse Resp B/P (MAP) Pulse Ox O2 O2 Flow FiO2 Time Delivery Rate 09/27/18 97.7 117 19 138/88 Room Air 2358 (105) Activity: WNL Respiratory function: WNL Cardiovascular function: WNL Mental status: Baseline Pain reasonably controlled: Yes Hydration appropriate: Yes Nausea/Vomiting absent: Yes KAREN LOREDO Sep 28, 2018 02:46
[2018-09-28] MEDS ORDERED: OXYTOCIN 30 UNITS/LR 500 ML IV SCH (05:55)
[2018-09-28] MEDS ORDERED: OXYTOCIN 30 UNITS/LR 500 ML IV PRN (06:00)
[2018-09-28] MEDS ORDERED: BENZOCAINE 20% 56 ML SPRAY TOP PRN (06:00)
[2018-09-28] MEDS ORDERED: CARBOPROST 250 MCG INJ IM PRN (06:00)
[2018-09-28] MEDS ORDERED: METHYLERGONOVINE 0.2 MG INJ IM PRN (06:00)
[2018-09-28] MEDS ORDERED: MISOPROSTOL 200 MCG TAB PR PRN (06:00)
[2018-09-28] MEDS ORDERED: LANOLIN HPA 1 PKT TOP PRN (06:00)
[2018-09-28] MEDS ORDERED: HYDROCODONE/APAP (5/325) TAB PO PRN (06:00)
--- NOTE | 2018-09-28 06:00 | LDN ---
Date/Time of Note Date/Time of Note DATE: 09/28/18 TIME: 05:57 Delivery Summary of a viable baby boy weighing 4035 grams or 8# 14 oz, 19.5" long, and with Apgars of 8/9. Weeks of Gestation 38w 6d Placenta Delivered: Spontaneously Meconium: none Episiotomy: Yes Indication for episiotomy Very tough perineum so nothing was stretching or tearing and more room was needed. Anesthesia type: Epidural Estimated blood loss: 400 Sponge & Needle done & correct: Yes All needle counts correct: Yes Any foreign bodies felt in the: No (vagina) Delivery Information Sex Infant Sex: male Apgars 1 Minute: 8 5 Minute: 9 Suctioning Nose & mouth suctioned at sheri: Yes Delee suction performed: No Umbilical Cord Umbilical cord with: 3 Vessels Cord presentations: no nuchal cord Cord Blood was obtained: Yes Mother & Baby Disposition Disposition Mom & Baby to Maternity; Good: Yes Baby to NICU: No MANJEET HODGE MD Sep 28, 2018 06:00
--- NOTE | 2018-09-28 06:05 | HP ---
Date/Time of Note Date/Time of Note DATE: 09/28/18 TIME: 06:00 OB - History Hx of Present Free Text/Dictation 43 y.o. A5 with an IUP at 38w 5 days came in active labor with spontaneous rupture of membranes and was 70%/3 cm on admit. Estimated Due Date: Oct 06, 2018 : 8 Para: 2 Spontaneous : 2 Therapeutic : 3 Ultrasounds: Normal mid trimester US Obstetrical Complications: Gestational Diabetes Medical Complications: None Past Family/Social History * Past Medical, Surgical, Family and Obstetric Histories reviewed from chart. Blood Type: O+ Rubella: immune RPR/VDRL: Negative GBS Status: Negative HBsAG: Negative OB Admission Exam Vital Signs Vital Signs Vital Signs Date Temp Pulse Resp B/P (MAP) Pulse Ox O2 O2 Flow FiO2 Time Delivery Rate 09/27/18 97.7 117 19 138/88 Room Air 19:45 (105) Physical Exam HEENT: WNL Heart: Rhythm Normal Lungs: Clear Abdomen: WNL Extremities: Normal Cervical Dilatation: 3cm Effacement: 75% Station: -2 Membranes: Ruptured Amniotic Fluid: Clear Heart Rate: 140's Accelerations: Accelerations Present Decelerations: No Decelerations Varibility: Moderate Contractions on Admission: < 5 Minutes Apart Intensity: Moderate Last 72 hourBlood Glucose Bedside Glucose - 72 Hours Test 09/27/18 19:48 09/27/18 22:25 09/28/18 00:34 09/28/18 02:42 Bedside 100 121 110 107 Glucose mg/dL (70-220) mg/dL (70-220) mg/dL (70-220) mg/dL (70-220) Test 09/28/18 04:38 Bedside 102 Glucose mg/dL (70-220) Last 72 hours Lab Results CBC & BMP 09/27/18 20:15 OB Assessment/Plan Reason for admission: active labor, rupture of membranes Plan: Expectant Management MANJEET HODGE MD Sep 28, 2018 06:05
[2018-09-28] MEDS: IBUPROFEN 600 MG TAB PO SCH ×3 (08:00→19:12)
[2018-09-28] MEDS: LACTATED RINGER'S 1,000 ML IV* SCH ×2 (08:00→13:55)
[2018-09-28 08:10] VITALS: BP 124/78; PULSE 104; RESP 18
[2018-09-28 09:10] VITALS: BP 124/74; PULSE 106; RESP 17
[2018-09-28 10:10] VITALS: BP 132/75; PULSE 109; RESP 18
[2018-09-28 16:19] VITALS: BP 108/61; PULSE 88; RESP 16
[2018-09-28 20:00] VITALS: BP 112/64; PULSE 74; RESP 20
[2018-09-29 04:29] VITALS: BP 109/56; PULSE 70; RESP 20
[2018-09-29] MEDS: IBUPROFEN 600 MG TAB PO SCH ×4 (05:09→23:43)
--- NOTE | 2018-09-29 15:58 | QN ---
Documentation Comment PPD#1 is stable afebrile +BM +voids NO VB Vs stable Gen NAD Abd soft NT ND Genitalia No blood at perineum -->Discharge plan tomorrow ROMY MARVIN M.D. Sep 29, 2018 15:58
[2018-09-29 16:00] VITALS: BP 121/58; PULSE 86; RESP 18
[2018-09-29 20:10] VITALS: BP 120/79; PULSE 76; RESP 18
[2018-09-30 04:00] VITALS: BP 100/56; PULSE 68; RESP 17
[2018-09-30] MEDS: IBUPROFEN 600 MG TAB PO SCH ×2 (05:44→12:38)
[2018-09-30 08:30] VITALS: BP 106/55; PULSE 74; RESP 18
[2018-09-30] MEDS ORDERED: DIPHTH/TET/ACEL PERTUSS (ADULT) 0.5 ML VIAL IM* ONE (09:00)
--- NOTE | 2018-09-30 14:12 | DS ---
Date/Time of Note Date/Time of Note DATE: 09/30/18 TIME: 14:12 Obstetrical Discharge Record Final Diagnosis Final Diagnosis: Term delivered Vaginal Delivery Obstetrical Delivery: Spontaneous Complications Gestational Diabetes Condition on Discharge Physical Assessment Voiding: Yes Bowel Movement: Yes Breast: Soft, non-tender, Filling Fundus: Firm Calf Tenderness: No Patient Condition: Stable SHERLEY CHAMBERS MD Sep 30, 2018 14:12
[2018-09-30 15:50] VITALS: BP 114/54; PULSE 72; RESP 15
--- NOTE | 2018-10-01 18:49 | DELSUM ---
Delivery Summary A-C Datetime Report Generated by CPN: 10/01/2018 18:48 DELIVERY PERSONNEL Surg Physician Asst: Dries, Braeden MATERNAL INFORMATION Delivery Anesthesia: Epidural Medications in Delivery: LR WITH 30 UNITS OF PITOCIN Delivery QBL (ml): 400 Placenta Cultured: No Maternal Complications: Other Other Maternal Complications: AMA RN Comments: TUMMY TUCK AND BREAST AUGMENTATION IN 2002 LABOR SUMMARY EDC: 10/06/2018 00:00 No. Babies in Womb: 1 Attempted: No Labor Anesthesia: Epidural LABOR INFORMATION Reason for Induction: Not Applicable Onset of Labor: 09/27/2018 19:00 Complete Dilatation: 09/28/2018 05:05 Oxytocin: N/A Group B Beta Strep: Negative Antibiotics # of Doses: 0 Steroids Given: None Reason Steroids Not Administered: Not Applicable MEMBRANES Membranes Rupture Method: Spontaneous Rupture of Membranes: 09/27/2018 19:00 Length of Rupture (hr): 10.42 Amniotic Fluid Color: Clear Amniotic Fluid Amount: Large Amniotic Fluid Odor: None STAGES OF LABOR Stage 1 hr: 10 Stage 1 min: 5 Stage 2 hr: 0 Stage 2 min: 20 Stage 3 hr: 0 Stage 3 min: 5 Total Time in Labor hr: 10 Total Time in Labor min: 30 VAGINAL DELIVERY Episiotomy: Median Laceration Extension: N/A Laceration Repair: Not Applicable Initial Vag Sponge Count: 10 Final Vag Sponge Count: 10 Initial Vag Sharps Count: 1 Final Vag Sharps Count: 2 Sponge Count Correct: Yes; Vaginal Sweep Performed Sharps Count Correct: Yes BABY A INFORMATION Delivery Date/Time: 09/28/2018 05:25 Method of Delivery: Vaginal Born in Route : No : N/A Forceps: N/A Vacuum Extraction: N/A Shoulder Dystocia : N/A SHOULDER DYSTOCIA BABY A Infant Delivery Date/Time: 09/28/2018 05:25 PRESENTATION/POSITION BABY A Presentation: Cephalic Cephalic Presentation: Vertex Vertex Position: Left Occipital Anterior Breech Presentation: N/A PLACENTA INFORMATION BABY A Placenta Delivery Time : 09/28/2018 05:30 Placenta Method of Delivery: Expressed Placenta Status: Delivered SCORES BABY A Heart Rate 1 min: >100 bpm Resp Effort 1 min: Good Cry Reflex Irritability 1 min: Cough/Sneeze/Pulls Away Muscle Tone 1 min: Active Motion Color 1 min: Blue/Pale Resuscitation Effort 1 min: Tactile Stimulation SCORE 1 MIN: 8 Heart Rate 5 min: >100 bpm Resp Effort 5 min: Good Cry Reflex Irritability 5 min: Cough/Sneeze/Pulls Away Muscle Tone 5 min: Active Motion Color 5 min: Body [place], Extremit Blue Resuscitation Effort 5 min: Tactile Stimulation SCORE 5 MIN: 9 INFANT INFORMATION BABY A Gestational Age at Delivery: 38.6 Gestational Status: Early Term- 37- 38.6 Weeks Outcome : Liveborn Condition : Stable Infant Sex: Male IDENTIFICATION/MEDS BABY A ID Band Number: [id number] ID Band Location: Right Leg; Left Arm Sensor Applied: Yes Sensor Number: [id number] Sensor Location : Cord Clamp Vitamin K Given : Not Given Erythromycin Given: Not Given WEIGHT/LENGTH BABY A Birthweight (gm): 4035 Infant Weight (lb): 8 Weight (oz): 14 Infant Length (in): 19.50 Length (cm): 49.53 CORD INFORMATION BABY A No. Cord Vessels: 3 Nuchal Cord : N/A Cord Blood Taken: Yes Infant Suction: Mouth; Nose; Pharynx ASSESSMENT BABY A Infant Complications: Multiple Late Decels; Multiple Variable Decels Physical Findings at Delivery: Within Normal Limits Respirations: Appears Normal Auxiliary Equipment Tender/ALS Called : No Infant Care By: Lanette SNYDER RN Transferred To: Remains with Mother
== END 2018-09-30 18:00 | disposition home or self-care (01) | DRG 807 ==
LOC: OBT 19:36 → L-D 19:36 → OBT 20:02 → L-D 20:02 → PP1 09-28 08:06
PROVIDERS: ADMIT Obstetrics & Gynecology; ATTEND Obstetrics & Gynecology
PROC: 10E0XZZ Delivery of Products of Conception, External Approach (ICD-10-PCS; principal; 2018-09-28)
PROC: 0W8NXZZ Division of Female Perineum, External Approach (ICD-10-PCS; 2018-09-28)
DX: O24.429 Gestational diabetes mellitus in childbirth, unspecified control (principal); Z37.0 Single live birth; O34.73 Maternal care for abnormality of vulva and perineum, third trimester; O99.214 Obesity complicating childbirth; E66.9 Obesity, unspecified; Z3A.38 38 weeks gestation of pregnancy
CPT/HCPCS: 76815; 82962; 85025; 85610; 85730; 86592; 86850; 86900; 86901; 87340; G0463; J0595; J2590; J3010; J7120